=== PATIENT | female | born 1935 | race Caucasian/White ===

== ENCOUNTER 2018-03-14 23:04 | Emergency (ER) | payer MEDICARE, BC ==
[~2018-03-14] VITALS: Ht 152.4 cm; Wt 68.0 kg
[~2018-03-14 23:04] MED LIST: HYOS.375ER PO; LEVO750 PO; TRAM50 PO
[2018-03-14] MEDS ORDERED: Zestril40 MG (23:20)
[2018-03-14] MEDS ORDERED: DONE10 PO (23:20)
[2018-03-14] MEDS ORDERED: FURO40 PO (23:20)
[2018-03-14] MEDS ORDERED: LOVA40 (23:20)
[2018-03-14 23:52] LABS: BASOPHILS ABSOLUTE AUTO 0.06 K/mm3 (0.00-0.23); BASOPHILS PERCENT AUTO 1 % (0-2); EOSINOPHILS ABSOLUTE AUTO 0.41 K/mm3 (0.00-0.68); EOSINOPHILS PERCENT AUTO 5 % (0-6); Hematocrit 38.2 % (33.0-51.0); Hemoglobin 12.5 g/dL (11.5-16.0); IMMATURE GRAN ABSOLUTE AUTO 0.03 K/mm3 (0.00-0.10); IMMATURE GRAN PERCENT AUTO 0 % (0-1); LYMPHOCYTES ABSOLUTE AUTO 2.34 K/mm3 (0.84-5.20); LYMPHOCYTES PERCENT AUTO 27 % (21-46); MONOCYTES ABSOLUTE AUTO 0.81 K/mm3 (0.16-1.47); MONOCYTES PERCENT AUTO 9 % (4-13); Mean Corpuscular HGB 31.5 pg (26.0-34.0); Mean Corpuscular HGB Conc 32.7 g/dL (31.5-36.5); Mean Corpuscular Volume 96 fL (80-100); Mean Platelet Volume 9.1 fL (9.1-12.4); NEUTROPHILS ABSOLUTE AUTO 5.08 K/mm3 (1.96-9.15); NEUTROPHILS PERCENT AUTO 58 % (41-73); Platelet Count 233 K/mm3 (150-400); RDW Coefficient Variation 13.4 % (11.7-14.2); Red Blood Cell Count 3.97 M/mm3 (3.80-5.20); White Blood Cell Count 8.73 K/mm3 (4.00-11.30)
[2018-03-15 00:08] LABS: Alanine Aminotransfer (ALT/SGP 20 U/L (12-78); Albumin, Blood 3.5 g/dL (3.4-5.0); Alk Phos 65 U/L (50-136); Anion Gap 9 mmol/L (6-16); Aspartate Aminotrans (AST/SGOT 16 U/L (12-37); Bilirubin, Total 0.5 mg/dL (0.1-1.0); Blood Urea Nitrogen 21 mg/dL (8-24); Bun/Creatinine Ratio 40.6 (12.0-20.0); CO2, Blood 27 mmol/L (21-32); Calcium, Blood 9.1 mg/dL (8.5-10.1); Chloride, Blood 105 mmol/L (98-108); Creatinine, Blood 0.52 mg/dL (0.40-1.00); Globulin, Blood 3.5 g/dL (2.2-4.0); Glomerular Filtration Rate >60 (60-); Glucose, Blood 140 mg/dL (70-99); Potassium, Blood 4.1 mmol/L (3.5-5.5); Sodium, Blood 141 mmol/L (136-145); Troponin I <0.015 ng/mL (0.000-0.040)
[2018-03-15 00:46] LABS: Source, Urine Catheter
[2018-03-15 00:49] LABS: Bilirubin, Urine Neg (Neg); Blood, Urine Neg (Neg); Glucose Qualitative, Urine Neg (Neg); Ketones, Urine Neg (Neg); Leukocyte Esterase, Urine Neg (Neg); Nitrite, Urine Neg (Neg); Protein, Urine Neg (Neg); Specific Gravity, Urine 1.015 (1.003-1.022); Urobilinogen, Urine NORM (Normal)
[2018-03-15 00:54] LABS: Appearance, Urine Clear (Clear); Color, Urine Pale Yellow (P-Yellow)
[2018-03-15 01:31] LABS: PCO2 Arterial 36.5 mmHg (35-45); PO2 Arterial 71.9 mmHg (80-100); pH Blood Arterial 7.49 (7.35-7.45)
== END 2018-03-15 02:16 | disposition home or self-care (01) ==
LOC: ER 23:04
PROVIDERS: Emergency Medicine
DX: R06.00 Dyspnea, unspecified (principal); R53.1 Weakness; Z88.5 Allergy status to narcotic agent; Z79.899 Other long term (current) drug therapy; Z79.891 Long term (current) use of opiate analgesic
CPT/HCPCS: 36600; 71046; 80053; 81003; 82803; 84484; 85025; 93005; 93010; 99283; P9612

== ENCOUNTER 2022-06-03 18:57 | Emergency (ER) | payer MEDICARE, BC ==
[~2022-06-03] VITALS: Ht 147.3 cm; Wt 63.5 kg
[~2022-06-03 18:57] MED LIST changes: +DONE10 PO; +FURO40 PO; +LOVA40; +Zestril40 MG
[2022-06-03] MEDS ORDERED: XARELTO15 MG PO (22:40)
== END 2022-06-03 23:06 | disposition home or self-care (01) ==
LOC: ER 18:57
DX: I82.412 Acute embolism and thrombosis of left femoral vein (principal); I82.432 Acute embolism and thrombosis of left popliteal vein; I82.442 Acute embolism and thrombosis of left tibial vein; I82.452 Acute embolism and thrombosis of left peroneal vein; Z88.5 Allergy status to narcotic agent; Z91.040 Latex allergy status; Z79.899 Other long term (current) drug therapy
CPT/HCPCS: 93971; A9270

== ENCOUNTER 2022-06-10 11:28 | Day surgery (SDC) | payer MEDICARE, BC ==
[~2022-06-10] VITALS: Ht 152.4 cm; Wt 63.6 kg
[~2022-06-10 11:28] MED LIST changes: +Prinivil10 MG PO; +XARELTO15 MG PO; -Zestril40 MG
--- NOTE | 2022-06-10 12:03 | NUR ---
PATIENT ARRIVED VIA WHEELCHAIR WITH SHAYNE ND DAUGHTER. SON LIFTED PATIENT TO THE BED AND DAUGHTER AND RN CHANGED PATIENT INTO A GOWN. COVID TEST WAS PERFORMED VIA ONE NOSTRIL. PATIENT WAS DEMENTED AND UNABLE TO TOLERATE THE SECOND NOSTRIL BEING ACCESSED FOR TEST. PATIENT FIESTY AND SOMEWHAT COMBATIVE AT TIMES.
[2022-06-10] MEDS ORDERED: POTA10T PO (12:25)
[2022-06-10 13:53] LABS: BASOPHILS ABSOLUTE AUTO 0.05 K/mm3 (0.00-0.23); BASOPHILS PERCENT AUTO 1 % (0-2); EOSINOPHILS ABSOLUTE AUTO 0.17 K/mm3 (0.00-0.68); EOSINOPHILS PERCENT AUTO 2 % (0-6); Hematocrit 35.2 % (33.0-51.0); Hemoglobin 11.3 g/dL (11.5-16.0); IMMATURE GRAN ABSOLUTE AUTO 0.02 K/mm3 (0.00-0.10); IMMATURE GRAN PERCENT AUTO 0 % (0-1); LYMPHOCYTES ABSOLUTE AUTO 2.49 K/mm3 (0.84-5.20); LYMPHOCYTES PERCENT AUTO 32 % (21-46); MONOCYTES ABSOLUTE AUTO 0.58 K/mm3 (0.16-1.47); MONOCYTES PERCENT AUTO 7 % (4-13); Mean Corpuscular HGB 30.1 pg (26.0-34.0); Mean Corpuscular HGB Conc 32.1 g/dL (31.5-36.5); Mean Corpuscular Volume 94 fL (80-100); Mean Platelet Volume 9.4 fL (9.1-12.4); NEUTROPHILS ABSOLUTE AUTO 4.55 K/mm3 (1.96-9.15); NEUTROPHILS PERCENT AUTO 58 % (41-73); Platelet Count 313 K/mm3 (150-400); RDW Coefficient Variation 14.3 % (11.7-14.2); RDW Standard Deviation 48.5 fL (35.1-46.3); Red Blood Cell Count 3.76 M/mm3 (3.80-5.20); White Blood Cell Count 7.86 K/mm3 (4.00-11.30)
--- NOTE | 2022-06-10 13:58 | NUR ---
1340 ANESTHESIA AT THE BEDSIDE FOR EVALUATION AND SPOKE WITH THE DAUGHTERS TO CONSENT FOR ANESTHESIA SERVICES. ASSISTED WITH PIV START. 2 MG IV VERSED GIVEN PER DR. ABEL AND DR. PEREYRA ORDERS. TO HELP CALM THE PAITENT AT THE TIME OF THE IV START.
[2022-06-10 14:12] LABS: International Normalized Ratio 1.41; Prothrombin Time Results 14.5 Sec (9.7-11.5)
[2022-06-10 14:15] LABS: Albumin, Blood 3.3 g/dL (3.4-5.0); Albumin/Globulin Ratio 0.8 (0.8-1.8); Bilirubin, Total 0.4 mg/dL (0.1-1.0); Bun/Creatinine Ratio 64.7 (12.0-20.0); Calcium, Blood 10.3 mg/dL (8.5-10.1); Creatinine, Blood 0.7 mg/dL (0.40-1.00); Globulin, Blood 4.2 g/dL (2.2-4.0); Potassium, Blood 4.5 mmol/L (3.5-5.5); Total Protein, Blood 7.5 g/dL (6.4-8.2)
--- NOTE | 2022-06-10 15:54 | NUR ---
PATIENT RETURNED TO THE RECOVERY ROOM POST PROCEDURE AND ANESTHESIA. PLACED ON THE MONITOR AND FAMILY AT THE BEDSIDE. VVS. DR. COLTEN PHAN THE INARI REP AT THE BEDSIDE AND SPOKE WITH THE PATIENT. ALL QUESTIONS ANSWERED.
--- NOTE | 2022-06-10 16:06 | NUR ---
1622 PATIENT BECAME VERY COMBATIVE. ALL MONITOR EQUIPMENT REMOVED. PIV REMOVED. PATEINT DRESSED. DAUGHTERS X 2 REMAIN AT THE BEDSIDE.
--- NOTE | 2022-06-10 16:53 | NUR ---
PATIENT DISCHARGE INSTRUCTIONS REVIEWED WITH THE DAUGHTERS INCLUDING NEW SCRIPT FOR XARELTO AND IT WAS FAXED TO THE PHARMACY. PATIENT WAS THREE PERSON ASSISTED TO HER WHEELCHAIR. LEFT LEG WRAP CDI, NO BLEEDING, NO HEMATOMA NOTED. PULSE TO THE PT/DP NOTED. PATIENT DISCHARGED HOME WITH INSTRUCTIONS AND TO FOLLOW UP NEEDED WITH DR. ABEL.
== END 2022-06-10 16:26 | disposition home or self-care (01) ==
LOC: ORSCMMR 11:28 → MHTC 11:28 → ORSCMMR 11:29 → ORD 12:30 → ORSCSDS 12:30 → MHTC 16:26 → ORSCMMR 16:26
PROVIDERS: Radiology Diagnostic Radiology
DX: I82.432 Acute embolism and thrombosis of left popliteal vein (principal); I82.412 Acute embolism and thrombosis of left femoral vein; I82.422 Acute embolism and thrombosis of left iliac vein
CPT/HCPCS: 37187; 75820; 75825; 76937; 80053; 85025; 85610; A9270; C1757; C1769; C1894; J1100; J1644; J2250; J2370; J2405; J2704; J3010; J7030; Q9967